=== PATIENT | female | born 1940 | race American Indian/Alaskan Native ===

== ENCOUNTER 2018-03-28 10:09 | Outpatient (CLI) | payer MEDICARE ==
--- NOTE | 2018-03-28 11:01 | XRay Report ---
RIGHT HAND: Pain. The bony architecture is intact. Bony alignment is normal. No soft tissue abnormalities are seen. The joint spaces appear preserved except for mild degenerative changes involving the first carpal metacarpal joint. The bones may be mildly demineralized. IMPRESSION: No acute findings.
== END 2018-03-28 10:10 | disposition home or self-care (01) ==
LOC: SPVIMAG 10:09
PROVIDERS: ATTEND Orthopaedic Surgery Sports Medicine
DX: M18.9 Osteoarthritis of first carpometacarpal joint, unspecified (principal); M81.0 Age-related osteoporosis without current pathological fracture

== ENCOUNTER 2021-07-15 12:37 | Emergency (ER) | payer MEDICARE ==
[2021-07-15 12:45] VITALS: BP 121/64
== END 2021-07-15 17:34 | disposition home or self-care (01) ==
LOC: ED 12:37
DX: E11.649 Type 2 diabetes mellitus with hypoglycemia without coma (principal); I10 Essential (primary) hypertension; R55 Syncope and collapse; K21.9 Gastro-esophageal reflux disease without esophagitis; Z90.710 Acquired absence of both cervix and uterus; Z79.82 Long term (current) use of aspirin; Z79.899 Other long term (current) drug therapy; Z88.0 Allergy status to penicillin
CPT/HCPCS: 36415; 80053; 82962; 83735; 84443; 84484; 85025; 93005; 99284